=== PATIENT | female | born 1965 | race Two or more races ===

== ENCOUNTER 2022-06-18 05:18 | Day surgery (SDC) | payer OTHER ==
[~2022-06-18] VITALS: Ht 149.9 cm; Wt 59.0 kg
== END 2022-06-18 13:35 | disposition home or self-care (01) ==
LOC: CIR.AMB 05:18
PROVIDERS: ATTEND Obstetrics & Gynecology
DX: N84.0 Polyp of corpus uteri (principal); Z20.822 Contact with and (suspected) exposure to COVID-19; Z71.6 Tobacco abuse counseling; F17.210 Nicotine dependence, cigarettes, uncomplicated